=== PATIENT | male | born 1970 | race Caucasian/White ===

== ENCOUNTER 2017-06-24 05:15 | Day surgery (SDC) | payer OTHER ==
[2017-06-15 10:15] VITALS: BMI 32.5
[~2017-06-24 05:15] MED LIST: ACETAMINOPHEN 325 MG TABLET (FP) PO PRN
[2017-06-24] MEDS ORDERED: CIPROFLOXACIN 0.3% EYE DROPS 5 ML BOTTLE ONE (09:33)
[2017-06-24] MEDS: CIPROFLOXACIN HCL 0.3% OPHTH 2.5ML BOTTLE OP SCH ×3 (09:55→10:20)
[2017-06-24] MEDS ORDERED: TRIAMCINOLONE ACET 40MG/1ML VIAL ONE (11:11)
[2017-06-24] MEDS ORDERED: FLUORESCEIN NA 1 EA STRIP ONE (11:11)
[2017-06-24] MEDS ORDERED: PROPOFOL 20 ML ONE (11:21)
[2017-06-24] MEDS ORDERED: MIDAZOLAM HCL 2 MG/2 ML SINGLE DOSE VIAL ONE (11:21)
[2017-06-24] MEDS ORDERED: fentaNYL CITRATE 250 MCG/5 ML VIAL ONE (11:21)
[2017-06-24] MEDS ORDERED: DEXAMETHASONE SOD PHOSPHATE 4 MG/1 ML VIAL ONE ×2 (11:22→12:46)
[2017-06-24] MEDS ORDERED: LIDOCAINE HCL/PF 2% SDV 5ML VIAL ONE (11:22)
[2017-06-24] MEDS ORDERED: CHONDROITIN SU A/HYALUR SOD 1 KIT IO ONE (11:50)
[2017-06-24] MEDS ORDERED: ACETYLCHOLINE 1:100 INTRA-OCUL 20 MG/2 ML KIT IO ONE (11:50)
[2017-06-24] MEDS ORDERED: GLYCOPYRROLATE 0.2 MG/1 ML VIAL ONE (13:05)
[2017-06-24] MEDS ORDERED: NEOSTIGMINE METHYLSULFATE 0.5 MG/ML - 10 ML MDV ONE (13:05)
[2017-06-24] MEDS ORDERED: LACTATED RINGERS SOLUTION 1,000 ML IV SCH (13:30)
[2017-06-24] MEDS ORDERED: ACETAMINOPHEN INJECTION 100 ML IVPB ONE (13:46)
[2017-06-24] MEDS ORDERED: ACETAMINOPHEN 1000 MG/100 ML VIAL (NON FORMULARY) IVPB ONE (14:00)
[2017-06-24 14:20] VITALS: TEMP 98
[2017-06-24 16:47] VITALS: BP 122/68; PULSE 83
--- NOTE | 2017-06-25 07:24 | OP ---
DATE OF OPERATION: DATE OF DICTATION: 06/24/2017 PREOPERATIVE DIAGNOSIS: Failed corneal transplant, right eye. POSTOPERATIVE DIAGNOSIS: Failed corneal transplant, right eye. PROCEDURE: Penetrating keratoplasty, right eye. ANESTHESIA: General with endotracheal tube intubation. COMPLICATIONS: None. PROCEDURE: The patient was brought into the operating room and correctly identified along with the operative site. The corneal tissue was also visually inspected with the parameters. The media was noted to be clear and the color pink and the cornea itself noted to be clear as well. The patient was then placed under general anesthesia with endotracheal tube intubation without complication. He was then prepped and draped in the usual sterile fashion, including 5% Betadine solution in the conjunctival sac and eyelid drape. An eyelid speculum was then placed into the right eye. The patient's cornea was inspected and a cloudy 6.5-mm corneal button was noted. The corneal diameters were measured and measured 11.5 mm vertically by 12 mm horizontally. Attention was then placed to the donor cornea and then using an 8.25-mm trephine the donor cornea was then prepared. Attention was then placed to the patient's cornea and the anatomic center of the cornea was then marked. Using an 8.0 mm [place] -Villegas vacuum trephine, the patient's cornea was then prepared. The trephine was used until aqueous just presented. Miochol was injected intracamerally as well as Viscoat. The cornea was then removed from the patient using corneoscleral scissors and sent for histopathologic evaluation. The donor corneal rim was as well sent for cultures for bacteria as well as fungus. The donor cornea was then placed on a bed of Viscoat on the patient's eye and sutured into place with sixteen 10-0 nylon interrupted sutures. Two sutures had to be replaced as the suturing was performed. At the end of the procedure, the cornea was noted to be well secured, the anterior chamber stable. Testing was performed for leakage using a fluorescein strip. The corneal wound was noted to be Brian negative. All sutures were buried and once again the cornea was tested and Brian negative. Subconjunctival vancomycin, Kenalog given. The eye patched and shielded and the patient aroused from general anesthesia without complication and discharged from the OR. CLAUDIA LUND M.D. [id number] MTDVladislav
--- NOTE | 2017-06-25 14:01 | PATH ---
Surgical Pathology Report Patient Name: AUSTIN JENKINS [facility]. Rec. #: [id number] /Age/Gender: 1970 (Age: 47) / M Account: [id number] Location: [facility] SUR[facility] Taken: 06/24/2017 Received: 06/24/2017 Reported: 06/25/2017 Physicians: Vance Funes M.D. Specimen(s) Received RIGHT CORNEA Clinical History Failed right corneal transplant Final Diagnosis RIGHT CORNEA, EXCISION: CORNEAL TISSUE WITH ENDOTHELIAL DECOMPENSATION AND IRREGULARITY OF DESCEMET'S MEMBRANE. 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 Electronically Signed Austin Cisneros M.D. Gross Description Received in formalin labeled "right cornea," is a 0.6 cm in diameter clear, lens shaped structure, consistent with a cornea. The specimen is trisected and entirely submitted in one cassette. /06/24/201706/24/2017
== END 2017-06-24 16:47 | disposition home or self-care (01) ==
LOC: JASU-SURG 05:15
PROVIDERS: ATTEND Ophthalmology
PROC: 08R8XKZ Replacement of Right Cornea with Nonautologous Tissue Substitute, External Approach (ICD-10-PCS; principal; 2017-06-24 11:00)
DX: T86.841 Corneal transplant failure (principal); Y83.9 Surgical procedure, unspecified as the cause of abnormal reaction of the patient, or of later complication, without mention of misadventure at the time of the procedure
CPT/HCPCS: 87070; 87102; 87107; 87205; 87210; 88304-TC; 94760; J0131